=== PATIENT | female | born 1990 | race African-American/Black ===

== ENCOUNTER → 2016-11-07 | Outpatient (CLI) | payer SELFPAY | LOC: RAD 16:53 | PROVIDERS: ATTEND Nurse Practitioner Women's Health | DX: Z34.81 Encounter for supervision of other normal pregnancy, first trimester (principal) | CPT/HCPCS: 76801 ==

== ENCOUNTER 2017-04-23 09:11 | Inpatient (IN) | payer MEDICAID ==
[2017-06-10] MEDS ORDERED: RINGERS SOLUTION,LACTATED 1,000 ML IV PRN (05:52)
[2017-06-10] MEDS ORDERED: OXYTOCIN/NORMAL SALINE 20 UNIT/1,000 ML RTUINJ IV PRN ×3 (05:54→18:56)
[2017-06-10] MEDS ORDERED: RINGERS SOLUTION,LACTATED 300 ML IV ONE (05:54)
[2017-06-10 06:15] LABS: APPEARANCE,URINE SLIGHTLY-CLOUDY; BILIRUBIN,URINE NEGATIVE (NEGATIVE); GLUCOSE, URINE NEGATIVE (NEGATIVE); KETONES,URINE NEGATIVE (NEGATIVE); LEUKOCYTE ESTERASE,URINE LARGE (NEGATIVE); NITRITE,URINE NEGATIVE (NEGATIVE); PROTEIN,URINE NEGATIVE (NEGATIVE); URINE SPECIFIC GRAVITY 1.006; UROBILINOGEN,URINE NEGATIVE mg/dL (<2.0)
[2017-06-10 06:20] LABS: ABSOLUTE BASOPHILS # (AUTO) 0.1 10^3/uL (0.0-0.2); ABSOLUTE EOSINOPHILS # (AUTO) 0.1 10^3/uL (0.0-0.6); ABSOLUTE LYMPHOCYTES (AUTO) 3.4 10^3/uL (0.5-4.7); ABSOLUTE MONOCYTES (AUTO) 0.4 10^3/uL (0.1-1.4); ABSOLUTE NEUT (AUTO) 5.1 10^3/uL (1.7-8.2); BASOPHILS % (AUTO) 0.7 % (0-2); EOSINOPHILS % (AUTO) 0.7 % (0-6); LYMPHOCYTES % (AUTO) 37.7 % (13-45); MEAN CORPUSCULAR HEMOGLOBIN 30.2 pg (27.0-33.4); MEAN CORPUSCULAR HGB CONC 34.3 g/dL (32.0-36.0); MEAN CORPUSCULAR VOLUME 88 fl (80-97); MONOCYTES % (AUTO) 4.8 % (3-13); RED BLOOD COUNT 3.98 10^6/uL (3.72-5.28); RED CELL DISTRIBUTION WIDTH 13.5 % (11.5-14.0); SEGMENTED NEUTROPHILS % (AUTO) 56.1 % (42-78); WHITE BLOOD COUNT 9.1 10^3/uL (4.0-10.5)
[2017-06-10 06:30] LABS: URINE BARBITURATES SCREEN NEGATIVE; URINE METHADONE SCREEN NEGATIVE; URINE OPIATES LOW NEGATIVE; URINE PHENCYCLIDINE SCREEN NEGATIVE
[2017-06-10 06:34] LABS: ALANINE AMINOTRANSFERASE 21 U/L (9-52); ALBUMIN 3.3 g/dL (3.5-5.0); ALKALINE PHOSPHATASE 172 U/L (38-126); ANION GAP 10 (5-19); ASPARTATE AMINO TRANSFERASE 21 U/L (14-36); BILIRUBIN,DIRECT 0.3 mg/dL (0.0-0.4); BILIRUBIN,TOTAL 0.5 mg/dL (0.2-1.3); BLOOD UREA NITROGEN 3 mg/dL (7-20); CALCIUM 9.6 mg/dL (8.4-10.2); CARBON DIOXIDE 18 mmol/L (22-30); CHLORIDE 109 mmol/L (98-107); CREATININE RESULT 0.58 mg/dL (0.52-1.25); GLUCOSE 107 mg/dL (75-110); LDH 390 U/L (313-618); POTASSIUM 3.7 mmol/L (3.6-5.0); SODIUM 137.1 mmol/L (137-145); TOTAL PROTEIN 6.3 g/dL (6.3-8.2); URIC ACID 3.5 mg/dL (2.5-6.2)
[2017-06-10] MEDS ORDERED: OXYTOCIN/NORMAL SALINE 20 UNIT/1,000 ML RTUINJ ONE (07:07)
--- NOTE | 2017-06-10 09:13 | L&D Progress Notes ---
PROGRESS NOTES Datetime Report Generated by CPN: 06/10/2017 09:12 PROGRESS NOTE Impression Other: IOL-stable Procedures: Sterile Vag Exam Procedures- Other: pereyra bulb insertion Plan: Continue Present Management; Induction; Cervical Ripening Informed Consent Obtained: Induction of Labor; Risks, Benefits and Alternatives Discussed Informed Consent Obtained- Other: insertion of pereyra bulb discussed Vital Signs : Reviewed Vital Signs Comments: occ. mild range Comment: S: reports occ. contractions. Planning on without epidural. Denies GUTIERREZ, RUQ, visual disturbances or other concerns. Reports +FM, denies LOF/bleeding. O: pitocin @ 4mu/min all others as stated above A: IUP @ 39w0d IOL for GHTN-stable pereyra bulb inserted without difficulty. Pt. tolerated well. P: continue IOL with pitocin and pereyra bulb. Discussed plan for pain control. Epidural prn. Pt. asked questions and verbalized understanding. VAGINAL EXAM Dilatation: 3 Dilatation: 2 Effacement: 40 Effacement: 40 Station: -3 Station: -3 Contractions: irregular MEMBRANES Pooling: Negative Membranes: Intact Membranes: Intact FETUS A Monitoring: External US FHR Category: Category I : 39.0 Estimated Weight (gm): 3900 Presentation: Vertex SIGNATURE SIGNATURE: [id number] Assignment: Farnaz Fermin MD Signature: with User ID: [email or web address] : with User ID: [email or web address]
[2017-06-10] MEDS ORDERED: MISOPROSTOL 0.2 MG TABLET ONE (11:31)
[2017-06-10] MEDS ORDERED: LIDOCAINE 1% INJ-PF (10 MG/ML) 30 ML SDV ONE (11:31)
--- NOTE | 2017-06-10 13:46 | L&D Progress Notes ---
PROGRESS NOTES Datetime Report Generated by CPN: 06/10/2017 13:46 PROGRESS NOTE Impression Other: IOL-stable Procedures: Artificial ROM; Sterile Vag Exam Plan: Continue Present Management Informed Consent Obtained: Vaginal Delivery; Induction of Labor; Risks, Benefits and Alternatives Discussed Vital Signs : Reviewed Vital Signs Comments: mild range Comment: S: reports increased pain with contractions, declines pain medication at this time O: pit @ 20mu/min, all other as stated above A: IUP @ 39w0d IOL for GHTN _ Poly- stable, AROM-large amount of clear fluid, tolerated well P: continue present management, pain meds prn, anticipate VAGINAL EXAM Dilatation: 6 Effacement: 50 Station: -2 Contractions: 2-3 MEMBRANES Amniotic Fluid Color: Clear FETUS A Monitoring: External US FHR Category: Category I FETUS C SIGNATURE: [id number] Assignment: Farnaz Fermin MD Signature: with User ID: [email or web address] : with User ID: [email or web address]
[2017-06-10] MEDS ORDERED: FENTANYL CITRATE INJ/PF 100 MCG/2 ML AMPUL IV ONE (16:54)
[2017-06-10] MEDS ORDERED: FENTANYL CITRATE INJ/PF 100 MCG/2 ML AMPUL ONE (16:59)
[2017-06-10] MEDS ORDERED: PSEUDOEPHEDRINE HCL 30 MG TABLET PO PRN (18:56)
[2017-06-10] MEDS ORDERED: MEASLES,MUMPS&RUBELLA VACC/PF 0.5 ML VIAL SUBCUT PRN (18:56)
[2017-06-10] MEDS ORDERED: GLYCERIN/WITCH HAZEL LEAF 1 EACH MED..PAD TP PRN (18:56)
[2017-06-10] MEDS ORDERED: PROMETHAZINE HCL 25 MG TABLET PO PRN (18:56)
[2017-06-10] MEDS ORDERED: PROMETHAZINE HCL INJ 25 MG/1 ML VIAL IV PRN (18:56)
[2017-06-10] MEDS ORDERED: ZOLPIDEM TARTRATE 5 MG TABLET PO PRN (18:56)
[2017-06-10] MEDS ORDERED: DIBUCAINE 1% OINTMENT 28 GM TP PRN (18:56)
[2017-06-10] MEDS ORDERED: PROMETHAZINE HCL 25 MG SUPP.RECT PR PRN (18:56)
[2017-06-10] MEDS ORDERED: ACETAMINOPHEN 650 MG SUPP.RECT PR PRN (18:56)
[2017-06-10] MEDS ORDERED: ACETAMINOPHEN 325 MG TABLET PO PRN (18:56)
[2017-06-10] MEDS ORDERED: BENZOCAINE/MENTHOL AEROSOL SPRAY 56 ML TOP PRN (18:56)
[2017-06-10] MEDS ORDERED: MAGNESIUM HYDROXIDE SUSP 30 ML UDCUP PO PRN (18:56)
[2017-06-10] MEDS ORDERED: NA PHOS,M-B/NA PHOS,DI-BA (ADULT) 133 ML ENEMA PR PRN (18:56)
[2017-06-10] MEDS ORDERED: DIPH/PERTUSS(ACELL)/TETANUS VAC/PF 0.5 ML SYR (>=10YO) IM PRN (18:56)
[2017-06-10] MEDS ORDERED: ACETAMINOPHEN WITH CODEINE #3 TABLET PO PRN ×2 (18:56)
[2017-06-10] MEDS ORDERED: DIPHENHYDRAMINE HCL 25 MG CAPSULE PO PRN (18:56)
[2017-06-10] MEDS: IBUPROFEN 800 MG TABLET PO SCH (19:52)
[2017-06-10] MEDS ORDERED: IBUPROFEN 800 MG TABLET ONE (19:54)
[2017-06-10] MEDS ORDERED: NIFEDIPINE 30 MG TAB.ER.24 PO ONE (20:04)
--- NOTE | 2017-06-10 20:43 | Admission Physical ---
Datetime Report Generated by CPN: 06/10/2017 20:43 CURRENT ADMISSION Chief Complaint: Scheduled Induction of Labor Indication for Induction: Gestational HTN; Polyhydramnios Admit Plan: Admit to Unit; Initiate Labor Induction Protocol ALLERGIES Medication Allergies: No Medication Allergies: No Known Allergies (06/10/2017) Medication Allergies: No Known Allergies (10/24/2012) Latex: No Latex Allergies Food Allergies: N/A Environmental Allergies: N/A (Annotations: Data stored by [facility] on behalf of user) OBSTETRICAL HISTORY EDC: 06/17/2017 00:00 : 3 Para: 1 Term: 1 : 0 SAB: 0 IAB: 1 Ectopic: 0 Livin Cesareans: 0 VBACs: 0 Multiple Births: 0 Gestational Diabetes: No Rh Sensitization: No Incompetent Cervix: No RANDY: No Infertility: No ART Treatment: No Uterine Anomaly: No IUGR: No Hx Previous C/S: No Macrosomia: No Hx Loss/Stillborn: No PIH: Yes Hx : No Placenta Previa/Abruption: No Depression/PP Depression: No PTL/PROM: No Post Hemorrhage: No Current Procedures: Ultrasound; NST Obstetrical History Comments: g1-2012, 39+1 weeks gestation, female, , 7lb 1oz, GHTN g2- 2012, EAB g3-current, ghtn, polyhydraminos highest mikayla 27.69 current at iol is 22.1cm SEE RECORDS Alcohol: No Marijuana : No Cocaine: No Other Illicit Drugs: No Cigarettes: Never Smoker. [id number] MEDICAL HISTORY Diabetes: No Blood Transfusion: No Pulmonary Disease (Asthma, TB): No Breast Disease: No Hypertension: Yes Security Advisor Surgery: No Heart Disease: No Hosp/Surgery: Yes Autoimmune Disorder: No Anesthetic Complications: No Kidney Disease: No Abnormal Pap Smear: No Neuro/Epilepsy: No Psychiatric Disorders: No Other Medical Diseases: No Hepatitis/Liver Disease: No Significant Family History: No Varicosities/Phlebitis: No Trauma/Violence : No Thyroid Dysfunction: No Medical History Comments: childbirth x1, obesity, htn during and period, PCOS INFECTIOUS HISTORY Gonorrhea: Yes Genital Herpes: No Chlamydia: Yes Tuberculosis: No Syphilis: No Hepatitis: No HIV/AIDS Exposure: No Rash or Viral Illness: No HPV: No Infectious History Comments: trich 02/2017, several episodes of chlamydia [id number], 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 on behalf of user) PHYSICAL EXAM General: Normal HEENT: Normal Neurologic: Normal Thyroid: Normal Heart: Normal Lungs: Normal Breast: Normal Back: Normal Abdomen: Normal Genitourinary Exam: Normal Extremities: Normal DTRs: Normal Pelvic Type: Adequate Vital Signs: Reviewed VAGINAL EXAM Dilatation: 6 Dilatation: 3 Dilatation: 2 Effacement: 50 Effacement: 40 Effacement: 40 Station: -2 Station: -3 Station: -3 Contraction Comments: 2-3 Contraction Comments: irregular MEMBRANES Pooling: Negative Membranes: Intact Membranes: Intact Amniotic Fluid Color: Clear FETUS A EGA: 39.0 Monitoring: External US FHR- Baseline: 150 Variability: Moderate 6-25bpm Accelerations: 10X10 Decelerations: None FHR Category: Category I Estimated Weight (gm): 3900 Presentation: Vertex PLANS FOR LABOR AND DELIVERY Labor and Delivery: None Pain Management: None Other Pain Management Plans: unsure for now Feeding Preference: Breast Benefit of Breast Feed Discussed: Yes Circumcision: N/A INFORMED CONSENT Informed Consent Obtained: Vaginal Delivery; Induction of Labor; Risks, Benefits and Alternatives Discussed Informed Consent Obtained: Induction of Labor; Risks, Benefits and Alternatives Discussed Informed Consent Obtained- Other: insertion of pereyra bulb discussed Signature: with User ID: [email or web address]
--- NOTE | 2017-06-10 20:44 | Delivery Summary ---
Del Sum A-C Datetime Report Generated by CPN: 06/10/2017 20:44 DELIVERY PERSONNEL DELIVERY PERSONNEL: [id number] Delivery Doctor:: Farnaz Fermin MD Labor and Delivery Nurse:: Najma Lenz RN Labor and Delivery Nurse:: PAULINO Ly Assistant Professor Of Life Sciences/PRINCIPAL PRODUCT MANAGER: Lizeth Simental CST Assistant Professor Of Life Sciences/PRINCIPAL PRODUCT MANAGER: Saman PHELAN CST Additional Personnel: : Montse Thompson RN MATERNAL INFORMATION Delivery Anesthesia: Local Medications After Delivery: Pitocin Bolus-Please Comment; Pitocin Drip 20 Units/1000ml NSS Estimated Blood Loss (ml): 250 Maternal Complications: None Provider Comments: VFI delivered in NAVYA presentation. No nuchal Cord. Shoulder and body delivered w/o difficulty. Cord doubly clamped and cut and to maternal abdomen for NRP. Placenta delivered spontaneously intact. Uterine exploration negative for retianed POC. FF at U. Good hemostasis after repair of 1st degree perineal laceration. Mother and baby stable upon provider leaving the room. LABOR SUMMARY EDC: 06/17/2017 00:00 No. Babies in Womb: 1 Attempted: No Labor Anesthesia: IV Sedation LABOR INFORMATION Reason for Induction: Gestational Hypertension Onset of Labor: 06/10/2017 12:00 Complete Dilatation: 06/10/2017 18:16 Cervical Ripening Agents: Jin Balloon Other Ripening Agents: pitocin Oxytocin: Induction Group B Beta Strep: negative Antibiotics # of Doses: 0 Steroids Given: None Reason Steroids Not Administered: Not Applicable MEMBRANES Membranes Rupture Method: Artificial Rupture of Membranes: 06/10/2017 13:40 Length of Rupture (hr): 4.65 Amniotic Fluid Color: Clear Amniotic Fluid Amount: Large Amniotic Fluid Odor: Normal STAGES OF LABOR Stage 1 hr: 6 Stage 1 min: 16 Stage 2 hr: 0 Stage 2 min: 3 Stage 3 hr: 0 Stage 3 min: 3 Total Time in Labor hr: 6 Total Time in Labor min: 22 VAGINAL DELIVERY Episiotomy: None Laceration Extension: First Degree Laceration Type: Perineal Laceration Repair: Yes Laceration Repair Note: 1st degree midline perineal laceration repaired in usual fashion with good hemostasis. Sponge Count Correct: N/A Sharps Count Correct: N/A CSECTION DELIVERY Primary Indication: N/A Secondary Indication: N/A CSection Incidence: N/A Labor: N/A Elective: N/A CSection Incision: N/A BABY A INFORMATION Infant Delivery Date/Time: 06/10/2017 18:19 Method of Delivery: Vaginal Born in Route : No : N/A Forceps: N/A Vacuum Extraction: N/A Shoulder Dystocia : No PRESENTATION/POSITION BABY A Presentation: Cephalic Cephalic Presentation: Vertex Vertex Position: Right Occipital Anterior Breech Presentation: N/A PLACENTA INFORMATION BABY A Placenta Delivery Time : 06/10/2017 18:22 Placenta Method of Delivery: Spontaneous Placenta Status: Delivered SCORES BABY A Heart Rate 1 min: >100 bpm Resp Effort 1 min: Good Cry Reflex Irritability 1 min: Cough or Sneeze or Pulls Away Muscle Tone 1 min: Active Motion Color 1 min: Blue/Pale Resuscitation Effort 1 min: Tactile Stimulation SCORE 1 MIN: 8 Heart Rate 5 min: >100 bpm Resp Effort 5 min: Good Cry Reflex Irritability 5 min: Cough or Sneeze or Pulls Away Muscle Tone 5 min: Active Motion Color 5 min: Body [place], Extremities Blue Resuscitation Effort 5 min: Tactile Stimulation SCORE 5 MIN: 9 INFORMATION BABY A Gestational Age at Delivery: 39.0 Gestational Status: Full Term- 39- 40.6 Weeks Infant Outcome : Liveborn Infant Condition : Stable Sex: Female IDENTIFICATION BABY A Verification Date/Time: 06/10/2017 19:10 ID Band Number: [id number] Mother's Name Verified: Yes Infant RN Verifying : M Hola RECORDS TECHNICIAN Additional Verifying Personnel: D [facility] RNC WEIGHT/LENGTH BABY A Infant Birthweight (gm): 4270 Weight (lb): 9 Infant Weight (oz): 7 Infant Length (in): 21.50 Length (cm): 54.61 CORD INFORMATION BABY A No. Cord Vessels: 3 Nuchal Cord : N/A Cord Blood Taken: Yes-For Storage (Mom's Blood type +) Suction: None ASSESSMENT BABY A Infant Complications: None Skin to Skin: Yes BABY B INFORMATION : N/A SIGNATURES Signature: with User ID: [email or web address]
[2017-06-10] MEDS: FAMOTIDINE 20 MG TABLET PO SCH (22:01)
[2017-06-11 07:01] LABS: HEMATOCRIT 30.6 % (36.0-47.0); HEMOGLOBIN 10.4 g/dL (12.0-15.5); HGB HCT DIFFERENCE 0.6; MEAN CORPUSCULAR HGB CONC 34.1 g/dL (32.0-36.0); MEAN CORPUSCULAR VOLUME 88 fl (80-97); RED BLOOD COUNT 3.48 10^6/uL (3.72-5.28); RED CELL DISTRIBUTION WIDTH 13.2 % (11.5-14.0)
[2017-06-11 07:22] LABS: WHITE BLOOD COUNT 24.1 10^3/uL (4.0-10.5)
[2017-06-11] MEDS: FERROUS SULFATE 325 MG TABLET PO SCH ×2 (09:13→17:45)
[2017-06-11] MEDS: FAMOTIDINE 20 MG TABLET PO SCH ×2 (09:14→21:08)
[2017-06-11] MEDS: DOCUSATE SODIUM 100 MG CAPSULE PO SCH ×2 (09:14→17:44)
[2017-06-11] MEDS: SENNOSIDES/DOCUSATE 8.6-50 MG 1 EACH TABLET PO SCH (09:14)
--- NOTE | 2017-06-11 09:23 | PDOC PROGRESS REPORT ---
Subjective-OB Subjective: Post Delivery Day:1 28 year old. Denies any needs at this time, states lochia is stable, pain is well controlled, voiding without difficulty. Physical Exam (OB) Vital Signs: Temp Pulse Resp BP Pulse Ox 98.7 F 76 18 131/69 H 100 06/11/17 00:17 06/11/17 00:17 06/11/17 00:17 06/11/17 00:17 06/11/17 00:17 Intake & Output 06/10/17 06/11/17 06/12/17 06:59 06:59 06:59 Intake Total 250 Balance 250 Weight 110.4 kg - PIH/Pre-Eclampsia DTR's: 2 + Clonus: Negative Headache: Absent Epigastric Pain: No Visual Changes: No - Lochia Lochia Amount: Small 10-25 ml Lochia Color: Rubra/Red - Abdomen Description: Tender, Soft, Round Hernia Present: No Fundal Description: Firm, Midline Fundal Height: u/u - u/2 Objective-Diagnostic Laboratory: 06/11/17 06:41 06/10/17 06:11 06/11/17 06:41 WBC 24.1 H D RBC 3.48 L Hgb 10.4 L Hct 30.6 L MCV 88 MCH 30.0 MCHC 34.1 RDW 13.2 Plt Count 227 Assessment and Plan(PN) - Assessment and Plan (1) Vaginal delivery Is this a current diagnosis for this admission?: Yes Plan: routine pp care (2) Acute blood loss anemia Is this a current diagnosis for this admission?: Yes Plan: ferrous sulfate increase dietary iron (3) Gestational HTN Qualifiers: Trimester: third trimester Qualified Code(s): O13.3 - Gestational [ -induced] hypertension without significant proteinuria, third trimester Is this a current diagnosis for this admission?: Yes Plan: monitor bp 1 week f/u in office (4) Tetrahydrocannabinol (THC) use disorder, mild, abuse Is this a current diagnosis for this admission?: Yes Plan: dc automatic data processing planner - Time Spent with Patient Time with patient: Less than 15 minutes Critical Time spent with patient: Less than 15 minutes Medications reviewed and adjusted accordingly: Yes - Disposition Anticipated Discharge: Home Within: within 24 hours
[2017-06-11] MEDS: IBUPROFEN 800 MG TABLET PO SCH ×3 (10:05→21:07)
[2017-06-11] MEDS: PRENATAL VITAMIN W-O CA NO5/FE FUMARATE/FA CAPSULE PO SCH (10:05)
[2017-06-11] MEDS ORDERED: NIFEDIPINE 30 MG TAB.ER.24 PO SCH (18:00)
[2017-06-12] MEDS: IBUPROFEN 800 MG TABLET PO SCH (06:01)
[2017-06-12 06:51] LABS: ABSOLUTE BASOPHILS # (AUTO) 0.1 10^3/uL (0.0-0.2); ABSOLUTE EOSINOPHILS # (AUTO) 0.1 10^3/uL (0.0-0.6); ABSOLUTE LYMPHOCYTES (AUTO) 4.7 10^3/uL (0.5-4.7); ABSOLUTE MONOCYTES (AUTO) 0.7 10^3/uL (0.1-1.4); ABSOLUTE NEUT (AUTO) 8.3 10^3/uL (1.7-8.2); BASOPHILS % (AUTO) 0.5 % (0-2); EOSINOPHILS % (AUTO) 0.9 % (0-6); HEMATOCRIT 31.9 % (36.0-47.0); HEMOGLOBIN 10.9 g/dL (12.0-15.5); HGB HCT DIFFERENCE 0.8; LYMPHOCYTES % (AUTO) 33.7 % (13-45); MEAN CORPUSCULAR HEMOGLOBIN 30.2 pg (27.0-33.4); MEAN CORPUSCULAR HGB CONC 34.1 g/dL (32.0-36.0); MEAN CORPUSCULAR VOLUME 89 fl (80-97); MONOCYTES % (AUTO) 5.3 % (3-13); RED CELL DISTRIBUTION WIDTH 13.9 % (11.5-14.0); SEGMENTED NEUTROPHILS % (AUTO) 59.6 % (42-78); WHITE BLOOD COUNT 13.9 10^3/uL (4.0-10.5)
[2017-06-12 08:41] VITALS: BP 120/72
[2017-06-12] MEDS: DOCUSATE SODIUM 100 MG CAPSULE PO SCH (09:35)
[2017-06-12] MEDS: FAMOTIDINE 20 MG TABLET PO SCH (09:36)
[2017-06-12] MEDS: SENNOSIDES/DOCUSATE 8.6-50 MG 1 EACH TABLET PO SCH (09:36)
[2017-06-12] MEDS: FERROUS SULFATE 325 MG TABLET PO SCH (09:36)
[2017-06-12] MEDS: PRENATAL VITAMIN W-O CA NO5/FE FUMARATE/FA CAPSULE PO SCH (10:38)
--- NOTE | 2017-06-12 12:44 | PDOC DISCHARGE SUMMARY ---
Final Diagnosis Discharge Date: 06/12/17 - Final Diagnosis (1) Gestational HTN Is this a current diagnosis for this admission?: Yes (2) Vaginal delivery Is this a current diagnosis for this admission?: Yes Discharge Data - Discharge Medication Home Medications: Pediatric Multivitamin No.42 [Flintstones] 2 each PO DAILY 11/03/12 Reason(s) for Admission: Induction of Labor, Obstetric Complications Procedures: NST Intrapartum Procedure(s): Spontaneous Vaginal Delivery Complication(s): Laceration-Perineal Laceration-Degree: 1st - Diagnosis Test Laboratory: Temp Pulse Resp BP Pulse Ox 98.3 F 85 16 120/72 100 06/12/17 12:36 06/12/17 12:36 06/12/17 12:36 06/12/17 12:36 06/12/17 12:36 06/10/17 06/10/17 06/11/17 05:54 06:11 06:41 RBC 3.98 3.48 L Hgb 12.0 10.4 L Hct 35.0 L 30.6 L Urine Opiates Screen NEGATIVE 06/12/17 06:09 RBC 3.60 L Hgb 10.9 L Hct 31.9 L Urine Opiates Screen - Discharge information/Instructions Discharge Activity: Activity As Tolerated, Pelvic Rest, No tub bath Discharge Diet: Regular Disposition: HOME, SELF-CARE Follow up with: [facility] in: 1, Weeks
== END 2017-06-12 13:20 | disposition home or self-care (01) | DRG 775 ==
LOC: UNDOADMIN 09:11 → LR 09:11 → 2S 06-10 20:37
PROVIDERS: ADMIT Student in an Organized Health Care Education/Training Program; ATTEND Student in an Organized Health Care Education/Training Program
PROC: 10E0XZZ Delivery of Products of Conception, External Approach (ICD-10-PCS; principal; 2017-06-10)
PROC: 0HQ9XZZ Repair Perineum Skin, External Approach (ICD-10-PCS; 2017-06-10)
PROC: 10907ZC Drainage of Amniotic Fluid, Therapeutic from Products of Conception, Via Natural or Artificial Opening (ICD-10-PCS; 2017-06-10)
PROC: 3E033VJ Introduction of Other Hormone into Peripheral Vein, Percutaneous Approach (ICD-10-PCS; 2017-06-10)
PROC: 4A1HXCZ Monitoring of Products of Conception, Cardiac Rate, External Approach (ICD-10-PCS; 2017-06-10)
DX: O13.4 Gestational [pregnancy-induced] hypertension without significant proteinuria, complicating childbirth (principal); D62 Acute posthemorrhagic anemia; O70.0 First degree perineal laceration during delivery; O99.324 Drug use complicating childbirth; O99.02 Anemia complicating childbirth; O40.3XX0 Polyhydramnios, third trimester, not applicable or unspecified; O99.214 Obesity complicating childbirth; F12.10 Cannabis abuse, uncomplicated; Z68.34 Body mass index [BMI] 34.0-34.9, adult; Z3A.39 39 weeks gestation of pregnancy; Z37.0 Single live birth
CPT/HCPCS: 36415; 80053; 80307; 81005; 83615; 84550; 85025; 85027; 86592; 86850; 86900; 86901; C1726; J2590; J3010; J3490

== ENCOUNTER → 2019-03-20 | Outpatient (CLI) | payer MEDICAID ==
--- NOTE | 2019-03-20 18:22 | RADIOLOGY REPORT (SQ) ---
EXAM DESCRIPTION: HAND LEFT 3 VIEWS COMPLETED DATE/TIME: 03/20/2019 6:13 pm REASON FOR STUDY: (M79.642)PAIN IN LEFT HAND M79.642 PAIN IN LEFT HAND COMPARISON: None. EXAM PARAMETERS: NUMBER OF VIEWS: Three views. TECHNIQUE: AP, lateral and oblique radiographic images acquired of the left hand. LIMITATIONS: None. FINDINGS: MINERALIZATION: Normal. BONES: No acute fracture or dislocation. No worrisome bone lesions. JOINTS: No effusions. SOFT TISSUES: No soft tissue swelling. No foreign body. OTHER: No other significant finding. IMPRESSION: NEGATIVE STUDY OF THE LEFT HAND. NO RADIOGRAPHIC EVIDENCE OF ACUTE INJURY. TECHNICAL DOCUMENTATION: JOB ID: [id number] [facility]- All Rights Reserved Reading location - IP/workstation name: [email or web address]
== END ==
LOC: RAD 17:53
PROVIDERS: ATTEND Nurse Practitioner Family
DX: M79.642 Pain in left hand (principal)